=== PATIENT | male | born 1990 ===

== ENCOUNTER 2017-04-29 22:40 | Emergency (ER) | payer SELFPAY ==
[~2017-04-29] VITALS: Wt 85.0 kg
--- NOTE | 2017-04-30 01:32 | RADRPT ---
PROCEDURE: Portable chest x-ray. CLINICAL INDICATION: Cough. TECHNIQUE: Portable AP view of the chest. COMPARISON: None. FINDINGS: There is patchy opacity at the right lung base, suspicious for pneumonia. The left lung is clear. T he cardiac silhouette is magnified. No pleural effusion is seen. There is no pneumothorax. IMPRESSION: 1. Patchy opacity at the right lung base, suspicious for pneumonia. RPTAT: HTAR .Juan Antonio Knight MD, MD Date Time Electronically viewed and signed by .Juan Antonio Knight MD, on 04/30/2017 01:32 .R/
[2017-04-30] MEDS ORDERED: LEVO750T25 PO (01:42)
[2017-04-30] MEDS ORDERED: ONDA-43 PO (01:42)
--- NOTE | 2017-04-30 01:50 | ERD ---
ER Documentation Chief Complaint Date/Time DATE: 04/30/17 TIME: 01:47 Chief Complaint N/V/D/COUGH/CONGESTION X1.5WKS WAS GIVEN ABX W/O RELIEF HPI This is a 26-year-old male presents to the ER with cough that is productive in nature for the last week and a half. Patient has also had fever over the last week and half. He was given a Z-Blaise, however did not work. Patient is also complaining of nausea vomiting and diarrhea. Vomiting is nonbilious nonbloody. Diarrhea is watery with no blood in it. He states that he feels very tired and weak. Patient denies any chest pain or shortness of breath. ROS 12 point review of systems was done, all negative except per HPI. Medications Home Meds Active Scripts Ondansetron Hcl* (Zofran*) 4 Mg Tab, 4 MG PO Q4H Y for NAUSEA AND OR VOMITING for 3 Days, TAB Prov:SHELLEY BUTTERFIELD C 04/30/17 Levofloxacin* (Levaquin*) 750 Mg Tablet, 750 MG PO DAILY for 5 Days, TAB Prov:GREER,SHELLEY C 04/30/17 Allergies Allergies: Coded Allergies: No Known Allergy (Unverified , 04/29/17) PMhx/Soc Hx Alcohol Use: No Hx Substance Use: No Hx Tobacco Use: No Smoking Status: Never smoker Physical Exam Vitals Vital Signs Date Time Temp Pulse Resp B/P Pulse Ox O2 Delivery O2 Flow Rate FiO2 04/29/17 22:49 99.0 89 28 136/74 98 Physical Exam GENERAL: The patient is well-developed, well-nourished, in no acute distress. NECK: Cervical spine is non tender with no step off. Supple, no nuchal rigidity HEENT: Atraumatic. Pupils equal, round and reactive to light. Extraocular muscles are grossly intact. Conjunctivae pink, no discharge. Bilateral tympanic membranes are clear with no evidence of erythema, effusion or dulling of the light reflex. Tonsilar erythema with no exudates or uvular deviation. Clear rhinorrhea. RESPIRATORY: Clear to auscultation bilaterally. There are no rales, wheezes or rhonchi. HEART: Regular rate and rhythm. No murmurs, clicks, rubs or gallops. EXTREMITIES: No clubbing or cyanosis. Full range of motion. Grossly neurovascularly intact. NEUROLOGIC: Alert and oriented. Cranial nerves II through XII are intact. SKIN: There is no rash. The skin is warm and dry. Procedures/MDM This is a 26-year-old male presents to the ER with a cough and fever for the last week and a half. On x-ray patient does have pneumonia. Patient is afebrile and well-appearing in the ER he is not hypoxic or in any respiratory distress and he is able to tolerate p.o. fluids. Patient also complained of nausea vomiting and diarrhea which may be viral in nature. Suspicion for acute abdomen is low as patient's abdominal examination is completely benign. Patient will be sent home with Daron, he was told to drink a lot of fluids. Patient will be given a 5 day course of Levaquin. He was instructed to return to ER immediately if he does not see any improvement in 48 hours. My medical decision making was shared with the patient understands and agrees with plan. Departure Diagnosis: Primary Impression: Pneumonia Condition: Stable Patient Instructions: Pneumonia Additional Instructions: Call your primary care doctor TOMORROW for an appointment during the next 1-2 days.See the doctor sooner or return here if your condition worsens before your appointment time. SHELLEY BUTTERFIELD Apr 30, 2017 01:49
[2017-04-30 02:04] VITALS: BP 120/80; PULSE 66; RESP 24; TEMP 98.3
== END 2017-04-30 02:17 | disposition home or self-care (01) ==
LOC: FTE 22:40
DX: J18.9 Pneumonia, unspecified organism (principal)
CPT/HCPCS: 71010